=== PATIENT | female | born 1955 | race Two or more races ===

== ENCOUNTER 2021-08-27 12:21 | Day surgery (SDC) | payer MEDICARE, BC ==
[~2021-08-27] VITALS: Ht 160 cm; Wt 60.3 kg
[2021-08-27] MEDS: METOPROLOL TARTRATE INJ 5 MG/5 ML AMPUL IVP PRN ×2 (11:45→11:50)
[2021-08-27 11:53] VITALS: BP 175/86
--- NOTE | 2021-08-27 12:04 | NUR ---
Patient is discharged in stable condition and transported back to [place] via ambulance [id number].
[~2021-08-27 12:21] MED LIST: CT SWABBABLE VALVE TRANS SET 1 EA INFUS.SET MC ONE; IOHEXOL-350 100 ML VIAL IV ONE; IV NS 0.9% 250 ML IV ONE; METOPROLOL TARTRATE INJ 5 MG/5 ML AMPUL ONE; NITROGLYCERIN 0.4 MG/TAB BOTTLE ONE; NITROGLYCERIN 0.4 MG/TAB BOTTLE SL ONE
== END 2021-08-27 12:29 | disposition short-term general hospital (02) ==
LOC: CT 12:21
PROVIDERS: ATTEND Internal Medicine Interventional Cardiology
DX: R07.9 Chest pain, unspecified (principal)
CPT/HCPCS: 75574; J3490; J7050; Q9967 ×2